=== PATIENT | male | born 1985 | race Asian ===

== ENCOUNTER 2024-06-22 17:15 | Emergency (ER) | payer MEDICAID ==
[~2024-06-22] VITALS: Ht 170.2 cm; Wt 76.0 kg
[2024-06-22 17:18] VITALS: BP 134/66; TEMP 36.9; O2SAT 100
[2024-06-22 17:20] VITALS: PULSE 86; RESP 16; O2SAT 99
== END 2024-06-22 21:33 | disposition left against medical advice (07) ==
LOC: ER 17:15
DX: R00.2 Palpitations (principal); Z53.21 Procedure and treatment not carried out due to patient leaving prior to being seen by health care provider